=== PATIENT | male | born 1975 | race Caucasian/White ===

== ENCOUNTER → 2021-02-02 13:21 | Outpatient (CLI) | payer OTHER, SELFPAY ==
[2021-02-02 15:31] LABS: Coronavirus 19 IgG Antibody Positive (Negative); Coronavirus 19 IgM Antibody Negative (Negative)
== END ==
PROVIDERS: PCP Family Medicine; Visit Provider Ophthalmology
DX: Z01.812 Encounter for preprocedural laboratory examination (principal); Z20.822 Contact with and (suspected) exposure to COVID-19; H25.11 Age-related nuclear cataract, right eye
CPT/HCPCS: 36415; 86328

== ENCOUNTER 2021-02-05 07:53 | Day surgery (SDC) | payer BC, OTHER, SELFPAY ==
[2021-01-31 12:17] VITALS: BMI 38.7
[2021-02-05 08:50] VITALS: BP 119/74; PULSE 80; RESP 16; TEMP 36.6; O2SAT 98
[2021-02-05 09:50] VITALS: BP 130/81; PULSE 79; RESP 16; O2SAT 99
[2021-02-05 09:55] VITALS: BP 123/73; PULSE 82; RESP 16; O2SAT 97
[2021-02-05 10:00] VITALS: BP 129/79; PULSE 84; RESP 16; O2SAT 98
[2021-02-05 10:05] VITALS: BP 130/78; PULSE 84; RESP 16; O2SAT 98
[2021-02-05 10:08] VITALS: BP 148/86; PULSE 91; RESP 18; TEMP 36.4; O2SAT 94
== END 2021-02-05 10:15 | disposition home or self-care (01) ==
LOC: OR 07:54
PROVIDERS: PCP Family Medicine; Visit Provider Ophthalmology
PROC: (CPT 66984; principal; 2021-02-05 10:00)
DX: H25.811 Combined forms of age-related cataract, right eye (principal); H53.149 Visual discomfort, unspecified; F41.9 Anxiety disorder, unspecified; I10 Essential (primary) hypertension; C85.90 Non-Hodgkin lymphoma, unspecified, unspecified site; Z82.49 Family history of ischemic heart disease and other diseases of the circulatory system
CPT/HCPCS: 66984; V2632